=== PATIENT | female | born 1985 | race Caucasian/White ===

== ENCOUNTER 2018-05-18 10:02 | Outpatient (CLI) | payer OTHER ==
--- NOTE | 2018-05-18 14:26 | MRI ---
MRI BRAIN WITHOUT CONTRAST: Date: 05/18/18 HISTORY: Headache. FINDINGS: No restricted diffusion is seen. No evidence of infarct, hemorrhage, midline shift, or abnormal extra -axial fluid collections noted. No blood products are seen on the gradient echo sequences. No signal abnormalities are noted on the highly sensitive FLAIR images. No tonsillar herniation is seen. There is extensive mucosal disease in the paranasal sinuses. IMPRESSION: 1. Unremarkable unenhanced MRI of the brain. 2. Paranasal sinus disease. POS: OFF
== END 2018-05-18 10:03 | disposition home or self-care (01) ==
LOC: SCSMRI 10:02
PROVIDERS: ATTEND Internal Medicine Nephrology
DX: N18.1 Chronic kidney disease, stage 1 (principal); R51 Headache; J32.9 Chronic sinusitis, unspecified
CPT/HCPCS: 70551